=== PATIENT | female | born 1965 | race Caucasian/White ===

== ENCOUNTER 2018-12-19 18:59 | Emergency (ER) | payer OTHER ==
[~2018-12-19] VITALS: Ht 160 cm; Wt 68.0 kg
[2018-12-19 19:27] VITALS: Ht 160 cm; Wt 68.0 kg
[2018-12-19] MEDS ORDERED: ONDANSETRON 4 MG INJ IV STA (19:46)
[2018-12-19] MEDS ORDERED: HYDROmorphONE 1 MG/ML SYG IV STA (19:46)
[2018-12-19] MEDS ORDERED: DICY10CA40 PO (21:15)
--- NOTE | 2018-12-19 21:19 | ERD ---
ER Documentation Chief Complaint Chief Complaint R SIDE FLANK PAIN X'S 1 YR HPI This is a 53-year-old female here for 1 year of right upper quadrant pain. The patient states she has postprandial right upper quadrant pain for 1 year happens off and on sometimes this patient's having pain for several days in a row sometimes she has no pain. She says she has no chest pain or shortness of breath. She has a history of pancreatitis with said this pain is not like pancreatitis pain. Pain is crampy and in the right upper quadrant and occurs about 20 minutes after meals. The pain sometimes radiates to the right back. No right lower quadrant pain no fever nausea vomiting diarrhea she also does complain of some bloating after eating as well ROS All systems reviewed and are negative except as per history of present illness. Medications Home Meds Active Scripts Dicyclomine HCl (Dicyclomine HCl) 10 Mg Capsule, 20 MG PO TID PRN for ABDOMINAL CRAMPING, #20 CAP Prov:VEMLA XAVIER JorgeDonaldo DO 12/19/18 PMhx/Soc Medical and Surgical Hx: pt denies Surgical Hx History of Surgery: No Hx Cardiac Disorders: Yes (HTN) Hx Miscellaneous Medical Probl: Yes (DM,PANCREATITIS) Hx Alcohol Use: No Hx Substance Use: No Hx Tobacco Use: No Smoking Status: Never smoker FmHx Family History: No coronary disease Physical Exam Vitals Vital Signs Date Temp Pulse Resp B/P (MAP) Pulse Ox O2 O2 Flow FiO2 Time Delivery Rate 12/19/18 99.5 86 18 116/73 97 19:27 (87) Physical Exam Const: Well-developed, well-nourished Head: Atraumatic, normocephalic Eyes: Normal Conjunctiva, PERRLA, EOMI, normal sclera, no nystagmus ENT: Normal External Ears, Nose and Mouth, moist mucus membranes. Neck: Full range of motion. No meningismus, no lymphadenopathy. Resp: Clear to auscultation bilaterally, no wheezing, rhonchi, rales Cardio: Regular rate and rhythm, no murmurs, S1 S2 present Abd: Soft, mild right upper quadrant tenderness, non distended. Normal bowel sounds, no guarding or rebound, no pulsitile abdominal masses or bruits Skin: No petechiae or rashes, no ecchymosis , no maculopapular rash Back: No midline or flank tenderness Ext: No cyanosis, or edema, FROM x 4, normal inspection, neurovascularly intact x 4 Neur: Awake and alert, STR 5/5 x 4, sensation intact x 4, no focal findings, cerebellum intact Psych: Normal Mood and Affect Result Diagram: 12/19/18200612/19/182006 Results 24 hrs Laboratory Tests Test 12/19/18 20:07 White Blood Count 7.4 10^3/ul Red Blood Count 4.68 10^6/ul Hemoglobin 13.4 g/dl Hematocrit 39.1 % Mean Corpuscular Volume 83.5 fl Mean Corpuscular Hemoglobin 28.6 pg Mean Corpuscular Hemoglobin Concent 34.3 g/dl Red Cell Distribution Width 13.2 % Platelet Count 218 10^3/UL Mean Platelet Volume 10.7 fl Immature Granulocytes % 0.400 % Neutrophils % 63.6 % Lymphocytes % 26.4 % Monocytes % 8.3 % Eosinophils % 0.9 % Basophils % 0.4 % Nucleated Red Blood Cells % 0.0 /100WBC Immature Granulocytes # 0.030 10^3/ul Neutrophils # 4.7 10^3/ul Lymphocytes # 2.0 10^3/ul Monocytes # 0.6 10^3/ul Eosinophils # 0.1 10^3/ul Basophils # 0.0 10^3/ul Nucleated Red Blood Cells # 0.0 10^3/ul Sodium Level 140 mmol/L Potassium Level 4.2 mmol/L Chloride Level 106 mmol/L Carbon Dioxide Level 24 mmol/L Anion Gap 10 Blood Urea Nitrogen 14 mg/dl Creatinine 0.76 mg/dl Est Glomerular Filtrat Rate mL/min > 60 mL/min Glucose Level 110 mg/dl Calcium Level 10.0 mg/dl Total Bilirubin 0.4 mg/dl Direct Bilirubin 0.00 mg/dl Indirect Bilirubin 0.4 mg/dl Aspartate Amino Transf (AST/SGOT) 21 IU/L Alanine Aminotransferase (ALT/SGPT) 33 IU/L Alkaline Phosphatase 68 IU/L Total Protein 7.9 g/dl Albumin 4.5 g/dl Globulin 3.40 g/dl Albumin/Globulin Ratio 1.32 Lipase 343 U/L Current Medications Medications Dose Sig/Mehnaz Start Time Status Last (Trade) Ordered Route PRN Stop Time Admin Dose Reason Admin 1 mg ONCE STAT 12/19/18 DC 12/19/18 Hydromorphone IV 19:46 20:05 HCl 12/19/18 19:47 (Dilaudid) Ondansetron 4 mg ONCE STAT 12/19/18 DC 12/19/18 HCl (Zofran IV 19:46 20:04 Inj) 12/19/18 19:47 Procedures/MDM Ordering MD: VELMA XAVIER DO Location: E/R Room/Bed: PROCEDURE: Right upper quadrant abdominal ultrasound. CLINICAL INDICATION: Abdominal pain TECHNIQUE: [place] scale and color doppler ultrasound images of the right upper quadrant of the abdomen. COMPARISON: No prior examinations available for comparison. FINDINGS: Pancreas: Visualized portions appear of normal echogenicity without focal lesions. Liver: Morphology: Minimally enlarged measuring 17.3 cm. Contour:Normal, no evidence of nodularity. Echogenicity: Increased Focal lesions:None. Main portal vein: Patent with hepatopetal flow. Biliary System: Gallbladder wall: Normal thickness. Gallstones: None. Intrahepatic bile ducts: Normal caliber. Common bile duct diameter (mm): 3.7 Kidneys: Right length (cm) : 10.5 Right cortical thickness: Normal. Echogenicity: Normal. Hydronephrosis: None. Renal calculi: None. Focal lesions: None. Free fluid/ascites: None. Other findings: None. IMPRESSION: Normal gallbladder without gallstones. Increased echogenicity of the liver parenchyma suggestive of hepatic steatosis. RPTAT: AADD .Lio Corley MD, MD Date Time Electronically viewed and signed by .Lio Corley MD, on 12/19/2018 20:49 .B/ CC: VELMA XAVIER DO [id number] Patient is having biliary colic which is what her history sounds like. She has had this for 1 year. She likely has dysfunctional gallbladder and I told her to get a HIDA scan and can attempt to take ox bile [id number] supplements to help digestion We will discharge home with Bentyl Departure Diagnosis: Primary Impression: Biliary colic Condition: Stable Patient Instructions: Low-Fat Cooking Tips Referrals: MATHEW SOTO MD, APOSTOLOS A. DO Dec 19, 2018 21:19
[2018-12-19 21:37] VITALS: BP 122/91; PULSE 68; RESP 16
== END 2018-12-19 21:39 | disposition home or self-care (01) ==
LOC: E/R 18:59
DX: K80.50 Calculus of bile duct without cholangitis or cholecystitis without obstruction (principal); I10 Essential (primary) hypertension; E11.9 Type 2 diabetes mellitus without complications
CPT/HCPCS: 36415; 76705; 80053; 83690; 85025; 96374; 96375; J1170; J2405; Z7502

== ENCOUNTER 2019-03-10 19:07 | Emergency (ER) | payer OTHER ==
[~2019-03-10] VITALS: Wt 68.1 kg
[~2019-03-10 19:07] MED LIST: DICY10CA40 PO
[2019-03-10] MEDS ORDERED: IBUP-1542 PO (20:18)
[2019-03-10] MEDS ORDERED: CEPH-443 PO (20:18)
[2019-03-10] MEDS ORDERED: PHEN-538 PO (20:18)
--- NOTE | 2019-03-10 20:21 | ERD ---
ER Documentation Chief Complaint Chief Complaint DYSURIA X'S 2 DAYS HPI 53-year-old female presents with suprapubic pain and dysuria for last 2 days. She has mild right mid abdominal pain no fevers, vomiting, flank pain or lower right or left abdominal pain. Denies vaginal discharge. ROS All systems reviewed and are negative except as per history of present illness. Medications Home Meds Active Scripts Phenazopyridine Hcl* (Pyridium*) 200 Mg Tab, 200 MG PO TID PRN for URINARY PAIN, #6 TAB Prov:TONI LEGER MD 03/10/19 Cephalexin* (Keflex*) 500 Mg Capsule, 500 MG PO QID for 5 Days, CAP Prov:TONI LEGER MD 03/10/19 Ibuprofen* (Ibuprofen*) 600 Mg Tablet, 600 MG PO Q6, #15 TAB Prov:TONI LEGER MD 03/10/19 Dicyclomine HCl (Dicyclomine HCl) 10 Mg Capsule, 20 MG PO TID PRN for ABDOMINAL CRAMPING, #20 CAP Prov:VELMA XAVIER DO 12/19/18 Allergies Allergies: Coded Allergies: No Known Allergy (Unverified , 03/10/19) PMhx/Soc Medical and Surgical Hx: pt denies Surgical Hx History of Surgery: No Hx Cardiac Disorders: Yes (HTN) Hx Miscellaneous Medical Probl: Yes (DM,PANCREATITIS) Hx Alcohol Use: No Hx Substance Use: No Hx Tobacco Use: No Smoking Status: Never smoker FmHx Family History: No diabetes, No coronary disease, No other Physical Exam Vitals Vital Signs Date Temp Pulse Resp B/P (MAP) Pulse Ox O2 O2 Flow FiO2 Time Delivery Rate 03/10/19 97.6 77 18 144/80 99 Room Air 20:24 (101) 03/10/19 97.9 84 18 165/86 99 19:16 (112) Physical Exam Const: No acute distress Head: Atraumatic Eyes: Normal Conjunctiva ENT: Normal External Ears, Nose and Mouth. Neck: Full range of motion. No meningismus. Resp: Clear to auscultation bilaterally Cardio: Regular rate and rhythm, no murmurs Abd: Soft, minimal suprapubic tenderness. No tenderness McBurney's point no Rivera sign. No CVA tenderness. No rebound. Non distended. Normal bowel sounds and no peritoneal signs. Skin: No petechiae or rashes Back: No midline or flank tenderness Ext: No cyanosis, or edema Neur: Awake and alert Psych: Normal Mood and Affect Results 24 hrs Laboratory Tests Test 03/10/19 19:35 Urine Color YELLOW Urine Clarity SLIGHTLY CLOUDY Urine pH 6.0 Urine Specific [place] 1.002 Urine Ketones NEGATIVE mg/dL Urine Nitrite NEGATIVE mg/dL Urine Bilirubin NEGATIVE mg/dL Urine Urobilinogen NEGATIVE mg/dL Urine Leukocyte Esterase 1+ Mere/ul Urine Microscopic RBC 0 /HPF Urine Microscopic WBC 1 /HPF Urine Bacteria FEW /HPF Urine Hemoglobin 2+ mg/dL Urine Glucose NEGATIVE mg/dL Urine Total Protein NEGATIVE mg/dl Current Medications Medications Dose Sig/Mehnaz Start Time Status Last (Trade) Ordered Route PRN Stop Time Admin Dose Reason Admin Cephalexin 500 mg ONCE ONCE 03/10/19 DC 03/10/19 (Keflex) PO 20:30 20:12 03/10/19 20:30 650 mg ONCE ONCE 03/10/19 DC 03/10/19 Acetaminophen PO 20:30 20:12 (Tylenol 03/10/19 20:30 Tab) 200 mg ONCE ONCE 03/10/19 DC 03/10/19 Phenazopyridi PO 20:30 20:12 ne HCl 03/10/19 20:30 (Pyridium) Procedures/MDM Shows 1+ leukocyte esterase. Patient was given Keflex, Pyridium and Tylenol. Patient presents with dysuria suprapubic pain for last 2 days. Will treat for uncomplicated cystitis. She will be discharged home with return precautions in the next day for worsening abdominal pain, fevers, vomiting, flank pain, new worsening symptoms. The patient was stable with no new complaints during the ER course. Clinically, there is no current evidence to suggest meningitis, sepsis, acute abdomen, pneumonia, stroke, acute coronary syndrome, pulmonary embolism, aortic dissection or any other emergent condition appearing to require further evaluation or hospitalization. Patient counseled regarding my diagnostic impression and care plan. Prior to discharge all questions answered. Pt agrees with treatment plan and understands strict return precautions. Pt is instructed to follow up with primary care provider within 24-48 hours. Precautionary in structions provided including instructions to return to the ER if not improving or for any worsening or changing symptoms or concerns. Disclaimer: Inadvertent spelling and grammatical errors are likely due to EHR/dictation software use and do not reflect on the overall quality of patient care. Also, please note that the electronic time recorded on this note does not necessarily reflect the actual time of the patient encounter. Departure Diagnosis: Primary Impression: Dysuria Condition: Stable Patient Instructions: Urinary Tract Infections in Women Referrals: DOCTOR,NOT ON STAFF (PCP) Additional Instructions: We will treat for findings of infection in urine. Recheck in the next 12 hours for fevers, vomiting, worsening abdominal pain to evaluate for additional causes of symptoms. Drink plenty fluids at home. TONI LEGER MD March 10, 2019 20:21
[2019-03-10 20:24] VITALS: BP 144/80; PULSE 77; RESP 18
[2019-03-10] MEDS ORDERED: ACETAMINOPHEN 325 MG TAB PO ONE (20:30)
[2019-03-10] MEDS ORDERED: PHENAZOPYRIDINE 100 MG TAB PO ONE (20:30)
[2019-03-10] MEDS ORDERED: CEPHALEXIN 500 MG CAP PO ONE (20:30)
== END 2019-03-10 20:26 | disposition home or self-care (01) ==
LOC: FTE 19:07
DX: R30.0 Dysuria (principal); E11.9 Type 2 diabetes mellitus without complications; I10 Essential (primary) hypertension
CPT/HCPCS: 81001; Z7502; Z7610; 99283